=== PATIENT | male | born 1990 | race Hispanic/Latino ===

== ENCOUNTER 2018-05-29 13:00 | Outpatient (RCR) | payer BC | END 2018-06-01 | LOC: PT 13:00 | PROVIDERS: ATTEND Specialist | DX: S33.5XXD Sprain of ligaments of lumbar spine, subsequent encounter (principal); M25.672 Stiffness of left ankle, not elsewhere classified; M25.675 Stiffness of left foot, not elsewhere classified; R26.2 Difficulty in walking, not elsewhere classified; M62.81 Muscle weakness (generalized) ==

== ENCOUNTER 2018-07-01 17:00 | Outpatient (RCR) | payer BC | END 2018-07-02 | LOC: PT 17:00 | PROVIDERS: ATTEND Specialist | DX: S33.5XXD Sprain of ligaments of lumbar spine, subsequent encounter (principal); M25.672 Stiffness of left ankle, not elsewhere classified; M25.675 Stiffness of left foot, not elsewhere classified; R26.2 Difficulty in walking, not elsewhere classified; M62.81 Muscle weakness (generalized) | CPT/HCPCS: 29530; 97139 ==

== ENCOUNTER 2018-07-17 13:00 | Outpatient (RCR) | payer BC | END 2018-07-30 | LOC: PT 13:00 | PROVIDERS: ATTEND Specialist | DX: S33.5XXD Sprain of ligaments of lumbar spine, subsequent encounter (principal); M25.572 Pain in left ankle and joints of left foot; M25.672 Stiffness of left ankle, not elsewhere classified; M25.675 Stiffness of left foot, not elsewhere classified; R26.2 Difficulty in walking, not elsewhere classified; M62.81 Muscle weakness (generalized) ==

== ENCOUNTER 2018-08-26 17:00 | Outpatient (RCR) | payer BC | END 2018-08-30 | LOC: PT 17:00 | PROVIDERS: ATTEND Specialist | DX: S33.5XXD Sprain of ligaments of lumbar spine, subsequent encounter (principal); M25.672 Stiffness of left ankle, not elsewhere classified; M25.675 Stiffness of left foot, not elsewhere classified; R26.2 Difficulty in walking, not elsewhere classified; M62.81 Muscle weakness (generalized) ==

== ENCOUNTER 2018-09-23 17:00 | Outpatient (RCR) | payer BC | END 2018-09-29 | LOC: PT 17:00 | PROVIDERS: ATTEND Specialist | DX: S33.5XXD Sprain of ligaments of lumbar spine, subsequent encounter (principal); M25.672 Stiffness of left ankle, not elsewhere classified; M25.675 Stiffness of left foot, not elsewhere classified; M62.81 Muscle weakness (generalized); R26.2 Difficulty in walking, not elsewhere classified ==

== ENCOUNTER 2018-10-01 17:00 | Outpatient (RCR) | payer BC | END 2018-10-30 | LOC: PT 17:00 | PROVIDERS: ATTEND Specialist | DX: S33.5XXD Sprain of ligaments of lumbar spine, subsequent encounter (principal); S93.492A Sprain of other ligament of left ankle, initial encounter; M25.672 Stiffness of left ankle, not elsewhere classified; M25.675 Stiffness of left foot, not elsewhere classified; M62.81 Muscle weakness (generalized); R26.2 Difficulty in walking, not elsewhere classified ==